=== PATIENT | male | born 2005 | race Two or more races ===

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

== ENCOUNTER 2025-02-25 15:00 | Emergency (ER) | payer MEDICAID ==
[~2025-02-25] VITALS: Ht 185.4 cm; Wt 71.8 kg
[2025-02-25 15:30] VITALS: BP 128/66; PULSE 42; RESP 16; TEMP 98.5; O2SAT 97
--- NOTE | 2025-02-25 15:37 | ED.PDOC ---
History of Present Illness(SKN HPI Comments This is a 19 year old male presenting to the ED with chief complaint of skin lesion. Patient reports that he has had a small lesion to his left thumb for years, wanting it re-evaluated today. Patient denies any pain, redness, discharge, bleeding, or further symptoms at this time. Chief Complaint: Wound Check Time Seen by MD: 15:35 History of Present Illness: Nurses Notes, Medications, Allergies Allergies: Coded Allergies: NO KNOWN ALLERGIES (Unverified , 08/20/21) Information Source: Patient Mode of Arrival: Ambulatory Severity: Mild Timing: Other (Years) Duration: Since onset Prehospital treatment: None Location: Hand Mechanism: Spontaneous Onset Object: None Condition of Object: None Retained Foreign Body: Unknown Wound Type: None Past Medical History PAST MEDICAL HISTORY: Denies Surgical History: Denies all surgeries Family History Family History: Reviewed,noncontributory to illness, No family hx of Cancer, No family hx of DM, No family hx of Heart destini Social History Smoker: Non-Smoker Alcohol: Denies ETOH Use Drugs: Denies Drug Use Lives In: Home Constitutional: denies: chills, diaphoresis, fatigue, fever, malaise, sweats, weakness, others EENTM: denies: blurred vision, double vision, ear bleeding, ear discharge, ear drainage, ear pain, ear ringing, eye pain, eye redness, hearing loss, mouth pain, mouth swelling, nasal discharge, nose bleeding, nose congestion, nose pain, photophobia, tearing, throat pain, throat swelling, voice changes, others Respiratory: denies: cough, hemoptysis, orthopnea, SOB at rest, shortness of breath, SOB with excertion, stridor, wheezing, others Cardiovascular: denies: chest pain, dizzy spells, diaphoresis, Dyspnea on exertion, edema, irregular heart beat, left arm pain, lightheadedness, palpitations, PND, syncope, others Gastrointestinal: denies: abdomen distended, abdominal pain, blood streaked bowels, constipated, diarrhea, dysphagia, difficulty swallowing, hematemesis, melena, nausea, poor appetite, poor fluid intake, rectal bleeding, rectal pain, vomiting, others Genitourinary: denies: burning, dysuria, flank pain, frequency, hematuria, incontinence, penile discharge, penile sore, pain, testicle pain, testicle swelling, urgency, others Neurological: denies: dizziness, fainting, headache, left sided numbness, left sided weakness, numbness, paresthesia, pre-existing deficit, right sided numbness, right sided weakness, seizure, speech problems, tingling, tremors, weakness, others Musculoskeletal: denies: back pain, gout, joint pain, joint swelling, muscle pain, muscle stiffness, neck pain, others Integumetry: reports: lesions; denies: bruises, change in color, change in hair/nails, dryness, laceration, lumps, rash, wounds, others Allergic/Immunocompromised: denies: Difficulty Healing, Frequent Infections, Hives, Itching, others Hematologic/Lymphatic: denies: anemia, blood clots, easy bleeding, easy bruising, swollen glands, others Endocrine: denies: excessive hunger, excessive sweating, excessive thirst, excessive urination, flushing, intolerance to cold, intolerance to heat, unexplained weight gain, unexplained weight loss, others Psychiatric: denies: anxiety, bipolar disorder, depression, hopeless, panic disorder, schizophrenia, sleepless, suicidal, others All Other Systems: Reviewed and Negative Physical Exam General Appearance: No Apparent Distress, Normal HEENT: Normal ENT Inspection, Pharynx Normal, TMs Normal Neck: Full Range of Motion, Non-Tender, Normal, Normal Inspection Respiratory: Chest Non-Tender, Lungs Clear, No Accessory Muscle Use, No Respiratory Distress, Normal Breath Sounds Cardiovascular: No Edema, No JVD, No Murmur, No Gallop, Normal Peripheral Pulses, Regular Rate/Rhythm Breast Exam: Deferred Gastrointestinal: No Organomegaly, Non Tender, No Pulsatile Mass, Normal Bowel Sounds, Soft Genitalia: Deferred Pelvic: Deferred Rectal: Deferred Extremities: No calf tenderness, Normal capillary refill, Normal inspection, Normal range of motion, Non-tender, No pedal edema Musculoskeletal : Apperance: Normal Neurologic: Alert, tile mechanic II-XII nml as Tested, No Motor Deficits, Normal Affect, Normal Mood, No Sensory Deficits Cerebellar Function: Normal Reflexes: Normal Skin: Dry, Normal Color, Warm, Other (Pea-sized, warty lesion to the dorsal base of left thumb. No redness or bleeding.) Lymphatic: No Adenopathy Was a procedure done? Was a procedure done?: No X-Ray, Labs, Meds, VS Vital Signs Date Time Temp Pulse Resp B/P (MAP) Pulse Ox O2 Delivery O2 Flow Rate FiO2 02/25/25 15:30 98.5 42 16 128/66 (86) 97 98.5 Time of 1ST Reevaluation: 15:45 Reevaluation 1ST: Unchanged Patient Education/Counseling: Diagnosis, Treatment, Prognosis, Need For Follow Up Family Education/Counseling: Diagnosis, Treatment, Prognosis, Need For Follow Up Comments pt needs to follow up with dermatology. the wart is too large for ER to remove, as it will likely spread Additional Information Reviewed patient's previous visit(s): 08/20/21 for closed right ankle fracture The following tests were ordered, and results were reviewed by me: None Additional information was gathered from interviewing the following independent historian: None I reviewed and agreed with the following test results read by other provider: None I discussed treatments and results with medical personnel and: Patient Comprehensive systems review obtained and negative except for what is stated in the HPI. SEPSIS Sepsis Screen Vital Signs Date Time Temp Pulse Resp B/P (MAP) Pulse Ox O2 Delivery O2 Flow Rate FiO2 02/25/25 15:30 98.5 42 16 128/66 (86) 97 98.5 Departure 1 Departure Time of Disposition: 15:43 Impression: Primary Impression: Wart on thumb Disposition: 01 HOME / SELF CARE / HOMELESS Condition: Good Discharged With: Self Critical Care Note Critical Care Time?: No Stability Stability form required: No Heart Score Heart Score: Heart Score Response (Comments) Value History N/A 0 EKG N/A 0 Age N/A 0 Risk Factors N/A 0 Troponin N/A 0 Total 0 I personally scribed for SHIRA DOE MD ([email or web address]) on 02/25/25 at 15:37. Electronically submitted by Josh Herman ([email or web address]). SHIRA DOE MD Feb 25, 2025 15:37
== END 2025-02-25 16:13 | disposition home or self-care (01) ==
LOC: ER 15:00
DX: B07.9 Viral wart, unspecified (principal)